=== PATIENT | female | born 1935 | race Caucasian/White ===

== ENCOUNTER 2018-03-31 00:24 | Inpatient (IN) | payer MEDICARE, BC ==
[2018-03-31] MEDS ORDERED: HEPARIN SODIUM,PORCINE 5,000 UNIT/ML 1 ML VIAL IV PRN (00:33)
--- NOTE | 2018-03-31 00:34 | ED ---
General Adult HPI - General Stated complaint: CHIP Time Seen by Provider: 03/31/18 00:32 - History of Present Illness Initial comments: Keturah is an 82-year-old female with a history of CAD and CABG as well as a recent history of persistent cough which is become productive. Patient reports she had some mildly blood tinged sputum earlier today which prompted her to seek care in an outside hospital. Evaluation at the outside hospital revealed that the patient had a right middle and right lower lobe pneumonia. CT PE study was performed and was negative. Labs revealed an elevated troponin the patient was started on heparin. She did have some shortness of breath and tachypnea [facility] for which she was transiently placed on BiPAP with resolution of her difficulty breathing. Patient was subsequently transferred to our hospital per her request. - Related Data Allergies Allergy/AdvReac Type Severity Reaction Status Date / Time azithromycin Allergy Unknown Verified 03/31/18 00:44 Penicillins Allergy Unknown Verified 03/31/18 00:44 Review of Systems ROS Statement: Those systems with pertinent positive or pertinent negative responses have been documented in the HPI. ROS Other: All systems not noted in ROS Statement are negative. Past Medical History Past Medical History: Coronary Artery Disease (CAD), Diabetes Mellitus, Hypertension, Thyroid Disorder Additional Past Surgical History / Comment(s): CABG, Aortic valve replacement General Exam - General Exam Comments Initial Comments: Physical Exam GENERAL: Chronically ill-appearing elderly female HENT: Normocephalic, Atraumatic. EYES: PERRL, EOMI PULMONARY: Crackles at bilateral bases, decreased breath sounds in the right base CARDIOVASCULAR: Systolic murmur No peripheral edema ABDOMEN: Soft and nontender with normal bowel sounds. SKIN: Skin is pale clear with no lesions or rashes and otherwise unremarkable. : Deferred NEUROLOGIC: Patient is alert and oriented x3. Moving all extremities spontaneously MUSCULOSKELETAL: Normal extremities with adequate strength and full range of motion. No lower extremity swelling or edema. No calf tenderness. PSYCHIATRIC: Normal psychiatric evaluation. Limitations: no limitations Course Vital Signs 03/31/18 03/31/18 00:27 01:33 Temperature 98.7 F Pulse Rate 89 89 Respiratory 20 18 Rate Blood Pressure 105/57 99/52 O2 Sat by Pulse 99 Oximetry EKG Findings - EKG Comments: EKG Findings:: EKG obtained at 12:52 AM, rate is 88, rhythm is sinus, there is a normal axis, there are normal intervals, MO 162, QRS 102, QTc is 469. There are ST depressions in leads 2 as well as leads V4 5 and 6. There are no acute ST elevations. There are frequent PVCs. Medical Decision Making - Medical Decision Making Patient care was discussed with transferring physician Dr. Santillan at [facility] Patient presented with productive cough, blood-tinged sputum, shortness of breath Thorough workup at that facility revealed right middle and lower lobe pneumonia , mildly elevated troponin at 0.4 and 0.6 Patient was transiently placed on BiPAP for respiratory distress, her respiratory effort improved and she was transitioned to 3 L nasal cannula. Patient was transferred to our facility for further management Computed tomography scan at that facility revealed no pulmonary embolism, again confirm the x-ray finding of right middle and lower lobe pneumonia Repeat labs were ordered Repeat labs with persistent anemia with a hemoglobin of 9.7, hemoglobin was 9.4 at outside facility Elevated PTT within therapeutic goal for heparin Troponin elevated at 7.2 Patient was reevaluated, again confirms that she is not experiencing any chest pain and has not experienced any chest pain today. Patient states that she has pain throughout her body for which she takes one Tylenol 3 every night to help her sleep. This is unchanged. Patient care was discussed with cardiology butadiene converter helper Dr. Dave, patient's presentation, EKG findings and labs were discussed. He agrees with the plan for continuing heparin and admitting with a cardiology consult. Patient was admitted to our hospital for continued monitoring. Levaquin was ordered for pneumonia, heparin for elevated troponin - Lab Data Result diagrams: 03/31/18 00:50 03/31/18 00:50 Disposition Clinical Impression: Pneumonia, Non-STEMI (non-ST elevated myocardial infarction), Chronic anemia, Respiratory failure Disposition: ADMITTED IP TO THIS HOSP Condition: Serious
[2018-03-31] MEDS ORDERED: NALOXONE 0.4 MG/ML 1 ML VIAL IV PRN (00:45)
[2018-03-31] MEDS ORDERED: HEPARIN SOD,PORK IN 0.45% NACL 25,000 UNIT in 0.45% NACL 1 500ML.BAG IV SCH (00:45)
[2018-03-31] MEDS ORDERED: PNEUMONIA PROTOCOL UTILIZED 1 EACH MISC PO PRN (00:46)
[2018-03-31 01:20] LABS: Basophils % (A) 0 %; Eosinophils % (A) 0 %; HCT 30.5 % (34.0-46.0); HGB 9.7 gm/dL (11.4-16.0); Lymphocytes # (A) 0.3 k/uL (1.0-4.8); Lymphocytes % (A) 5 %; MCH 34.1 pg (25.0-35.0); MCHC 31.7 g/dL (31.0-37.0); MCV 107.7 fL (80.0-100.0); Macrocytosis Moderate; Mean Platelet Volume 9.1; Monocytes # (A) 0.2 k/uL (0-1.0); Monocytes % (A) 3 %; Neutrophils # (A) 5.9 k/uL (1.3-7.7); Neutrophils % (A) 92 %; Platelet Count 200 k/uL (150-450); RBC 2.83 m/uL (3.80-5.40); WBC 6.4 k/uL (3.8-10.6)
[2018-03-31 01:22] LABS: INR 1.3 (<1.2); Partial Thromboplastin Time 51.5 sec (22.0-30.0); Prothrombin Time 12.6 sec (9.0-12.0)
[2018-03-31 01:24] LABS: Albumin 2.3 g/dL (3.5-5.0); Calcium 8.3 mg/dL (8.4-10.2); Magnesium 1.9 mg/dL (1.6-2.3); Total Bilirubin 0.5 mg/dL (0.2-1.3); Total Protein 7.1 g/dL (6.3-8.2)
[2018-03-31 01:42] LABS: Potassium 4.4 mmol/L (3.5-5.1)
[2018-03-31 01:48] LABS: Creatine Kinase MB 11.7 ng/mL (0.0-2.4)
[2018-03-31 01:50] LABS: Troponin I 7.32 ng/mL (0.000-0.034)
[2018-03-31 03:58] VITALS: BMI 24.2
[2018-03-31 05:44] LABS: Glucose,Whole Blood 188 mg/dL (75-99)
[2018-03-31] MEDS: IPRATROPIUM-ALBUTEROL 3 ML NEB INHALATION SCH ×4 (07:09→20:12)
[2018-03-31 07:48] LABS: Calcium 8.5 mg/dL (8.4-10.2); Potassium 4.5 mmol/L (3.5-5.1)
--- NOTE | 2018-03-31 09:07 | P.CRDCN ---
History of Present Illness Consult date: 03/31/18 Chief complaint: Shortness of breath History of present illness: This is a pleasant 82-year-old female patient who was transferred from [facility] for further cardiac evaluation. The patient overall is a poor historian. She lives by herself. She stated that she was in her usual state of health until 2 days ago when she started feeling more short of breath even with minimal exertion. No symptoms of chest pain or chest discomfort according to her. No dizziness or lightheadedness and no syncope. She was experiencing cough associated with tiny amount of blood. She did not have any fever or chills. The cause of the shortness of breath the patient decided to come to the emergency room. She did undergo a chest x-ray which revealed right middle and right lower lobe pneumonia. For some reason, the patient underwent a computed tomography scan of the chest and that came in to be negative for PE. The patient was ruled in for acute non-ST deviation myocardial infarction, the first troponin came in to be around 8, and the second troponin came in to be around 13. The BNP was 2600s. 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 She does have an extensive cardiac history and she underwent coronary artery bypass grafting with unknown details and unknown date area and she does not recall when was the bypass and how many bypasses did she have. Beside that she does have hypertension, dyslipidemia, and she is diabetic. The EKG revealed sinus rhythm with ischemic and diffuse ST segment changes quite concerning for ischemia. On physical examination, the patient does seems to be in heart failure. She does have bilateral rhonchi. She is slightly tachycardic as well. Past Medical History Past Medical History: Coronary Artery Disease (CAD), Diabetes Mellitus, Hypertension, Thyroid Disorder History of Any Multi-Drug Resistant Organisms: None Reported Additional Past Surgical History / Comment(s): CABG, Aortic valve replacement ( pt cant remember the date of the sx) Past Anesthesia/Blood Transfusion Reactions: No Reported Reaction Past Psychological History: No Psychological Hx Reported Smoking Status: Former smoker Past Alcohol Use History: None Reported Past Drug Use History: None Reported - Past Family History Mother Family Medical History: Hypertension Medications and Allergies Allergies Allergy/AdvReac Type Severity Reaction Status Date / Time azithromycin Allergy Unknown Verified 03/31/18 00:44 Penicillins Allergy Unknown Verified 03/31/18 00:44 Physical Exam Vitals: Vital Signs Temp Pulse Pulse Resp BP BP Pulse Ox 03/31/18 08:00 98.1 F 82 18 127/67 100 03/31/18 07:20 90 03/31/18 07:11 86 97 03/31/18 04:00 98 F 90 19 120/80 95 03/31/18 02:35 97.4 F L 03/31/18 02:30 97.9 F 97 17 103/61 97 03/31/18 02:00 93/53 97 03/31/18 01:33 89 18 99/52 99 03/31/18 00:27 98.7 F 89 20 105/57 Intake and Output 03/30/18 03/31/18 03/31/18 22:59 06:59 14:59 Intake Total 293.304 Balance 293.304 Intake: Intake, IV Titration 53.304 Amount Heparin Sod,Pork in 0.45% 53.304 NaCl 25,000 unit In 0.45 % NaCl 1 500ml.bag @ 12 UNITS/KG/HR 13.49 mls/hr IV .Q24H [facility] Rx#: [id number] Oral 240 Other: Voiding Method Toilet Bedpan # Voids 0 Weight 61 kg 56.2 kg - Constitutional General appearance: no acute distress - Respiratory Respiratory: bilateral: rales - Cardiovascular Rhythm: regular Heart sounds: normal: S1, S2 Abnormal Heart Sounds: systolic murmur Results 03/31/18 00:50 03/31/18 06:12 Cardiac Enzymes 03/31/18 03/31/18 03/31/18 Range/Units 00:50 00:50 06:12 AST 46 H (14-36) U/L CK-MB (CK-2) 11.7 H (0.0-2.4) ng/mL Troponin I 7.320 H* 13.400 H* (0.000-0.034) ng/mL Coagulation 03/31/18 03/31/18 Range/Units 00:50 06:12 PT 12.6 H (9.0-12.0) sec APTT 51.5 H 36.7 H (22.0-30.0) sec CBC 03/31/18 Range/Units 00:50 WBC 6.4 (3.8-10.6) k/uL RBC 2.83 L (3.80-5.40) m/uL Hgb 9.7 L (11.4-16.0) gm/dL Hct 30.5 L (34.0-46.0) % Plt Count 200 (150-450) k/uL Comprehensive Metabolic Panel 03/31/18 03/31/18 Range/Units 00:50 06:12 Sodium 133 L 135 L (137-145) mmol/L Potassium 4.4 4.5 (3.5-5.1) mmol/L Chloride 107 108 H (98-107) mmol/L Carbon Dioxide 18 L 17 L (22-30) mmol/L BUN 31 H 34 H (7-17) mg/dL Creatinine 1.09 H 1.28 H (0.52-1.04) mg/dL Glucose 165 H 175 H (74-99) mg/dL Calcium 8.3 L 8.5 (8.4-10.2) mg/dL AST 46 H (14-36) U/L ALT 18 (9-52) U/L Alkaline Phosphatase 42 (38-126) U/L Total Protein 7.1 (6.3-8.2) g/dL Albumin 2.3 L (3.5-5.0) g/dL Current Medications Generic Name Dose Route Start Last Admin Trade Name Freq PRN Reason Stop Dose Admin Albuterol/Ipratropium 3 ml 03/31/18 08:00 03/31/18 07:09 Duoneb 0.5 Mg-3 Mg/3 Ml Soln INHALATION 3 ml RT-QID MANGO Administration Aspirin 81 mg 03/31/18 09:00 Aspirin PO DAILY MANGO Atorvastatin Calcium 80 mg 03/31/18 21:00 Lipitor PO HS MANGO Furosemide 40 mg 03/31/18 09:00 Lasix IV Q12HR MANGO Heparin Sodium (Porcine) 0 unit 03/31/18 00:33 03/31/18 08:56 Heparin IV 2,750 unit PER PROTOCOL PRN Administration Low PTT Protocol Heparin Sodium/Sodium Chloride 500 mls @ 13.49 mls/hr 03/31/18 00:45 08:52 25,000 unit/ Sodium Chloride IV 9.66 units/kg/hr .Q24H MANGO 10.86 mls/hr Titration Protocol 12 UNITS/KG/HR Levofloxacin 750 mg/ IV 150 mls @ 100 mls/hr 04/01/18 19:00 Solution IVPB 04/11/18 19:01 Q48H MANGO Metoprolol Tartrate 25 mg 03/31/18 09:00 Lopressor PO BID MANGO Miscellaneous Information 1 each 03/31/18 00:46 Pneumonia Protocol Utilized PO ONCE PRN Per Protocol Naloxone HCl 0.2 mg 03/31/18 00:45 Narcan IV Q2M PRN Opioid Reversal Intake and Output 03/30/18 03/31/18 03/31/18 22:59 06:59 14:59 Intake Total 293.304 Balance 293.304 Intake: Intake, IV Titration 53.304 Amount Heparin Sod,Pork in 0.45% 53.304 NaCl 25,000 unit In 0.45 % NaCl 1 500ml.bag @ 12 UNITS/KG/HR 13.49 mls/hr IV .Q24H [facility] Rx#: [id number] Oral 240 Other: Voiding Method Toilet Bedpan # Voids 0 Weight 61 kg 56.2 kg Patient Weight 04/01/18 06:59 Weight 56.2 kg 03/31/18 00:50 03/31/18 06:12 Assessment and Plan Assessment: Assessment #1 acute non-ST deviation myocardial infarction #2 congestive heart failure exacerbation and known if it's due to systolic or diastole dysfunction #3 known CAD and status post CABG with unknown details #4 diabetes type 2 #5 hypertension #6 dyslipidemia Plan #1 the patient seems to be in heart failure at this point. #2 start the patient on diuretics with Lasix IV at 40 mg twice a day #3 monitor her kidney function and electrolytes #4 add aspirin, metoprolol, and Lipitor to the current medical regimen #5 obtain an echocardiogram with Doppler #6 consider conservative approach for the next 24 hours #7 the patient does need to have coronary angiogram in the next 24-48 hours once she is out of the acute phase of heart failure #8 follow-up with the patient. Thank you for allowing us participate in her care and we will continue following up with her
[2018-03-31] MEDS: ASPIRIN 81 MG PO SCH (10:03)
[2018-03-31] MEDS: METOPROLOL TARTRATE 25 MG TAB PO SCH ×2 (10:03→20:33)
[2018-03-31] MEDS: FUROSEMIDE 10 MG/ML 4 ML VIAL IV SCH ×2 (10:03→20:33)
[2018-03-31 11:31] LABS: Glucose,Whole Blood 170 mg/dL (75-99)
[2018-03-31] MEDS ORDERED: APIXABAN 2.5 MG TABLET PO SCH ×2 (12:15→13:03)
--- NOTE | 2018-03-31 13:59 | ECHOF ---
Referral Reason:nstemi MEASUREMENTS -------- HEIGHT: 152.4 cm WEIGHT: 55.8 kg BP: IVSd: 1.5 cm (0.6 - 1.1) LVIDd: 4.3 cm (3.9 - 5.3) LVPWd: 1.5 cm (0.6 - 1.1) IVSs: 1.9 cm LVIDs: 3.5 cm LVPWs: 1.5 cm LA Diam: 3.6 cm (2.7 - 3.8) LAESV Index (A-L): 62.00 ml/m Ao Diam: 2.7 cm (2.0 - 3.7) LA Diam: 4.8 cm (2.7 - 3.8) EPSS: 0.8 cm MV E Chadwick: 0.88 m/s MV DecT: 210 ms MV A Chadwick: 0.30 m/s MV E/A Ratio: 2.90 AV maxP.52 mmHg AV meanP.85 mmHg AR PHT: 308 ms RAP: 5.00 mmHg RVSP: 42.91 mmHg MV EF SLOPE: 69.59 mm/s (70 - 150) MV EXCURSION: 12.49 mm (> 18.000) FINDINGS -------- Sinus rhythm. This was a technically adequate study. The left ventricular size is normal. There is mild concentric left ventricular hypertrophy. Overa ll left ventricular systolic function is mild-moderately impaired with, an EF between 40 - 45 %. An terseptal Hypokinesis The right ventricle is normal in size. The left atrium is markedly dilated. LA is severely dilated >40 ml/m2 The right atrial size is normal. The aortic valve was not well visualized. There is moderate aortic valve sclerosis. Peak/mean gra dient across the Aortic Valve is 68.52mmHg / 43.85mmHg. 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 Mild mitral annular calcification present. Moderate mitral regurgitation is present. Mild tricuspid regurgitation present. There is mild pulmonary hypertension. The right ventricular systolic pressure, as measured by Doppler, is 42.91mmHg. There is no pulmonic regurgitation present. The aortic root size is normal. There is no pericardial effusion. CONCLUSIONS -------- 1. The left ventricular size is normal. 2. There is mild concentric left ventricular hypertrophy. 3. Overall left ventricular systolic function is mild-moderately impaired with, an EF between 40 - 45 %. 4. Anterseptal Hypokinesis 5. The right ventricle is normal in size. 6. The left atrium is markedly dilated. 7. LA is severely dilated >40 ml/m2 8. The right atrial size is normal. 9. The aortic valve was not well visualized. 10. There is moderate aortic valve sclerosis. 11. Peak/mean gradient across the Aortic Valve is 68.52mmHg / 43.85mmHg. 12. 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 13. Mild mitral annular calcification present. 14. Moderate mitral regurgitation is present. 15. Mild tricuspid regurgitation present. 16. There is mild pulmonary hypertension. 17. The right ventricular systolic pressure, as measured by Doppler, is 42.91mmHg. 18. There is no pulmonic regurgitation present. 19. The aortic root size is normal. 20. There is no pericardial effusion. HEATER MECHANIC: Kinjal Garibay RDCS
[2018-03-31] MEDS: LOSARTAN 50 MG TAB PO SCH (14:36)
[2018-03-31] MEDS: LEVOTHYROXINE 50 MCG TAB PO SCH (14:36)
[2018-03-31] MEDS: POTASSIUM CHLORIDE ER 20 MEQ TAB.ER PO SCH (14:36)
[2018-03-31] MEDS: amLODIPine 5 MG TAB PO SCH (14:36)
--- NOTE | 2018-03-31 14:55 | XR ---
EXAMINATION TYPE: XR chest 2V DATE OF EXAM: 03/31/2018 COMPARISON: NONE HISTORY: Pneumonia and altered mental status. TECHNIQUE: Frontal and lateral views of the chest are obtained. FINDINGS: There is complete atelectasis of the right middle lobe and right midlung focal opacity. Sc attered areas of subsegmental atelectasis are seen peripherally on the left. Pulmonary hyperinflation relates underlying COPD. Cardiomediastinal silhouette is enlarged with post cardiac valvular replace ment surgical change of the chest. There is diffuse osseous demineralization and mild multilevel dege nerative changes of the thoracic spine. IMPRESSION: Right middle lobar atelectasis and right midlung opacity. Although underlying pneumonia is a possibility obstructing mass is also possible and could be further assessed with CT.
[2018-03-31] MEDS: HEPARIN SOD,PORK IN 0.45% NACL 25,000 UNIT in 0.45% NACL 1 500ML.BAG IV SCH (15:50)
[2018-03-31 17:13] LABS: Glucose,Whole Blood 147 mg/dL (75-99)
[2018-03-31] MEDS: ATORVASTATIN 80 MG TAB PO SCH (20:33)
[2018-03-31] MEDS ORDERED: LEVOFLOXACIN 750MG-D5W PMX 750 MG in DEXTROSE/WATER 1 150ML.BAG IVPB SCH (20:45)
[2018-03-31 21:00] LABS: Glucose,Whole Blood 141 mg/dL (75-99)
[2018-03-31] MEDS: ALBUTEROL NEBULIZED 2.5 MG/3 ML INHALATION PRN (21:12)
[2018-03-31] MEDS: HEPARIN SODIUM,PORCINE 5,000 UNIT/ML 1 ML VIAL IV PRN (21:33)
[2018-03-31] MEDS: SODIUM BICARBONATE TAB 650 MG TAB PO SCH (21:33)
--- NOTE | 2018-03-31 22:10 | HP ---
HISTORY AND PHYSICAL DATE OF ADMISSION: 03/31/2018 DATE OF SERVICE: 03/31/2018 PRESENTING COMPLAINT: Short of breath, tired. HISTORY OF PRESENTING COMPLAINT: This is a pleasant 82-year-old patient who follows with Dr. Banks. Chronic stable medical conditions include coronary artery disease with a history of bypass, diabetes, hypertension, hypothyroid. Patient is not the best of historians; somewhat vague while giving the history. The patient states she is here because she has been short of breath for a few days, has a slight cough, congested, not able to bring up much sputum. No edema. There is no obvious fever. Appetite is okay. She has been having bowel movements. Denies any obvious chest pain. In the meantime, patient also had ruled in for an acute CA, initial troponin being 7.3. The patient was put on IV heparin. Patient denies any obvious chest discomfort, though weak and tired. No perspiration. REVIEW OF SYSTEMS: CONSTITUTIONAL: Weak and tired. HEENT: None. RESPIRATORY: As above. CARDIOVASCULAR: As above. GASTROINTESTINAL: None. GENITOURINARY: None. MUSCULOSKELETAL: Some pain in the joints. DERMATOLOGICAL: None. HEMATOLOGICAL: None. LYMPHATICS: None. PSYCHIATRY: A bit forgetful. NEUROLOGICAL: None. PAST MEDICAL HISTORY: 1. Coronary artery disease. 2. Diabetes. 3. Hypertension. 4. Hypothyroid. PAST SURGICAL HISTORY: 1. Aortic valve replacement. 2. Coronary artery bypass. SOCIAL HISTORY: Lives by herself. Uses a walker. Did smoke in the past. No alcohol. FAMILY HISTORY: Hypertension. HOME MEDICATIONS: 1. Eliquis 2.5 mg p.o. b.i.d. 2. Norvasc 5 mg p.o. daily. 3. Pravachol 20 mg p.o. daily. 4. Potassium 20 mEq p.o. daily. 5. Synthroid 50 mcg p.o. daily. 6. Lasix 20 mg p.o. daily. 7. Losartan 100 mg p.o. daily. 8. Ventolin HFA 2 puffs q.4 p.r.n. ALLERGIES: ERYTHROMYCIN and PENICILLIN. PHYSICAL EXAMINATION: Temperature 98.2, pulse 87, respiration 18, blood pressure 126/82, pulse ox 99% on 2 L. GENERAL APPEARANCE: Average build. Lying in bed. Tired-appearing. EYES: Pupils equal. Conjunctivae normal. HEENT: External appearance of nose and ears normal. Oral cavity normal. NECK: JVD not raised. Mass not palpable. RESPIRATORY: Effort increased. Decreased breath sounds. Some bronchial breathing on the right side. CARDIOVASCULAR: First and second sounds normal. No edema. ABDOMEN: Soft, non-tender. Liver and spleen not palpable. LYMPHATIC: No lymph node palpable in neck or axillae. PSYCHIATRY: Patient is able to answer some simple questions. NEUROLOGICAL: Pupils equal. Cranial nerves grossly intact. Power and sensation grossly intact. INVESTIGATIONS: White count 6.4, hemoglobin 9.7, platelets 200. Potassium 4.4, BUN 31, creatinine 1.09. Bicarb is 18. BUN and creatinine are 34 and 1.28. ProBNP 26,700. Troponin I 7.3, 13.4, 15.6. Two-D echocardiogram shows EF of 40% to 45% with anteroseptal hypokinesis, moderate mitral regurgitation present. EKG shows poor R-wave progression in the anterior leads, ST-segment depression in leads II, III and the lateral leads. The EKG was personally reviewed by me. Chest x-ray film, personally reviewed by me, shows right middle lobe infiltrate, possible small effusion and some venous prominence. Sternal wires are present. ASSESSMENT: 1. Acute non-Q-wave myocardial infarction. 2. Possible acute congestive heart failure from systolic dysfunction, ejection fraction 40% to 45%, from underlying coronary artery disease. 3. Right lower lobe pneumonia; cannot rule out underlying mass. 4. 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 5. Chronic gait dysfunction. Uses a walker. 6. Macrocytic anemia, cause unknown. 7. Possible chronic kidney disease, stage III, from nephrosclerosis. 8. Metabolic acidosis, likely from renal failure. PLAN: Patient is started on IV Lasix, IV heparin. Home medications are resumed. Patient is also on aspirin. Eliquis was held. The patient was earlier seen by Dr. Estrella, who did offer a cardiac catheterization. The patient is very apprehensive about the same. Will also start the patient on Levaquin. Pulmonary was consulted. Will check patient's renal ultrasound and a UA to check for chronicity of renal function. MMODL / IJN: [id number] /
[2018-04-01] MEDS ORDERED: FUROSEMIDE 10 MG/ML 2 ML VIAL IV STA (00:42)
[2018-04-01] MEDS: ALBUTEROL NEBULIZED 2.5 MG/3 ML INHALATION PRN ×2 (00:56→06:04)
[2018-04-01 01:37] LABS: Glucose,Whole Blood 151 mg/dL (75-99)
[2018-04-01 02:39] LABS: Appearance,Urine Clear (Clear); Bilirubin,Urine Negative (Negative); Blood,Urine Small (Negative); Color,Urine Light Yellow; Glucose,Urine (UA) Negative (Negative); Hyaline Casts,Urine 4 /lpf (0-2); Ketones,Urine Negative (Negative); Leukocyte Esterase,Urine Negative (Negative); Mucus,Urine Rare /hpf; Nitrite,Urine Negative (Negative); PH, Urine 5.5 (5.0-8.0); Protein,Urine 2+ (Negative); RBC,Urine 1 /hpf (0-5); Specific Gravity,Urine 1.017 (1.001-1.035); Urobilinogen,Urine <2.0 mg/dL (<2.0); WBC,Urine 2 /hpf (0-5)
[2018-04-01 04:29] LABS: Basophils % (A) 0 %; Eosinophils # (A) 0.1 k/uL (0-0.7); Eosinophils % (A) 1 %; HCT 34.9 % (34.0-46.0); HGB 10.8 gm/dL (11.4-16.0); Hypochromasia Moderate; Lymphocytes # (A) 1.2 k/uL (1.0-4.8); Lymphocytes % (A) 10 %; MCH 34.7 pg (25.0-35.0); Mean Platelet Volume 9.5; Monocytes # (A) 0.7 k/uL (0-1.0); Monocytes % (A) 6 %; Neutrophils # (A) 9.5 k/uL (1.3-7.7); Neutrophils % (A) 83 %; Platelet Count 339 k/uL (150-450); RBC 3.11 m/uL (3.80-5.40); RDW 13.1 % (11.5-15.5); WBC 11.5 k/uL (3.8-10.6)
[2018-04-01] MEDS: HEPARIN SODIUM,PORCINE 5,000 UNIT/ML 1 ML VIAL IV PRN (04:41)
[2018-04-01] MEDS: LEVOTHYROXINE 50 MCG TAB PO SCH (05:52)
[2018-04-01 06:09] LABS: Calcium 8.7 mg/dL (8.4-10.2)
[2018-04-01 06:18] LABS: Macrocytosis Marked
[2018-04-01 06:52] LABS: Glucose,Whole Blood 180 mg/dL (75-99)
--- NOTE | 2018-04-01 08:10 | XR ---
EXAMINATION TYPE: XR chest 2V DATE OF EXAM: 04/01/2018 COMPARISON: Prior chest x-ray 03/31/2018 HISTORY: Heart failure TECHNIQUE: Frontal and lateral views of the chest are obtained. FINDINGS: Patient is post median sternotomy, aortic valve replacement. Heart size is stable. There i s prominence of the central vascularity, perihilar airspace disease. No evident pneumothorax. Persist ent right middle lobe volume loss, abnormal increased density is present. Patient is rotated and ther e are overlying cardiac leads, epicardial pacing leads are noted. IMPRESSION: Findings compatible with congestive heart failure. Persistent right middle lobe atelecta sis, follow-up to resolution is recommended to assess for interval clearing, exclude central mass.
--- NOTE | 2018-04-01 08:29 | US ---
EXAMINATION TYPE: US kidneys/renal and bladder DATE OF EXAM: 04/01/2018 COMPARISON: NONE CLINICAL HISTORY: renal failure. EXAM MEASUREMENTS: Right Kidney: 10.0 x 4.1 x 5.2 cm Left Kidney: 10.9 x 5.5 x 4.6 cm Right Kidney: No hydronephrosis. Loss of corticomedullary differentiation. Left Kidney: Prominent renal pelvis. Loss of corticomedullary differentiation. Multiple probable para pelvic cysts visualized, largest measuring 1.3 x 1.0 x 1.0 cm Bladder: wnl as visualized Bilateral Jets seen: Left jet visualized Incidental finding: Gallstones visualized Cortical echogenicity is increased bilaterally IMPRESSION: Findings suggest medical renal disease. Mild left hydronephrosis. Cholelithiasis.
[2018-04-01] MEDS: IPRATROPIUM-ALBUTEROL 3 ML NEB INHALATION SCH ×2 (08:42→12:16)
[2018-04-01] MEDS: ASPIRIN 81 MG PO SCH (09:00)
[2018-04-01] MEDS: amLODIPine 5 MG TAB PO SCH (09:00)
[2018-04-01] MEDS: FUROSEMIDE 10 MG/ML 4 ML VIAL IV SCH (09:00)
[2018-04-01] MEDS: LOSARTAN 50 MG TAB PO SCH (09:00)
[2018-04-01] MEDS: METOPROLOL TARTRATE 25 MG TAB PO SCH ×2 (09:01→21:49)
[2018-04-01] MEDS: SODIUM BICARBONATE TAB 650 MG TAB PO SCH ×3 (09:01→21:50)
[2018-04-01] MEDS: POTASSIUM CHLORIDE ER 20 MEQ TAB.ER PO SCH (09:58)
[2018-04-01] MEDS: ONDANSETRON 4 MG/2 ML VIAL IVP PRN ×4 (09:59→23:26)
[2018-04-01 11:32] LABS: Glucose,Whole Blood 147 mg/dL (75-99)
[2018-04-01] MEDS ORDERED: IPRATROPIUM-ALBUTEROL 3 ML NEB INHALATION PRN (12:14)
--- NOTE | 2018-04-01 12:21 | P.NPCON ---
History of Present Illness - Reason for Consult acute renal failure - History of Present Illness Reason for consultation: Acute kidney injury History of present illness: Patient is a 82-year-old female seen in renal consultation for acute kidney injury. Unknown baseline creatinine. Creatinine was 1.09 on admission and is up to 2.14 today. Patient presented to the hospital with cough. She also admits to a pinkish tinge to her sputum. Patient had workup done prior to admission and was noted to have a right middle lobe and a right lower lobe pneumonia. She also had a CTA done yesterday which revealed no evidence of pulmonary embolus. Patient also has history of systolic CHF with ejection fraction of 40-45% with moderate mitral regurgitation. Ultrasound reveals no evidence of hydronephrosis. She is maintained on IV antibiotics as well as IV Lasix 40 mg IV twice daily. Admits to good urine output. No hematuria or dysuria. Denies use of NSAIDs. Oral intake is fair. No vomiting or diarrhea. No edema. Denies family history of renal disease. Vital signs are stable. General: The patient appeared well nourished and normally developed. HEENT: Head exam is unremarkable. Neck is without jugular venous distension. LUNGS: Lungs are clear to auscultation and percussion. Breath sounds decreased. HEART: Rate and Rhythm are regular. First and second heart sounds normal. No murmurs, rubs or gallops. ABDOMEN: Abdominal exam reveals normal bowel sounds. Non-tender and non- distended. No evidence of peritonitis. EXTREMITITES: No clubbing, cyanosis, or edema. Past Medical History Past Medical History: Coronary Artery Disease (CAD), Diabetes Mellitus, Hypertension, Thyroid Disorder History of Any Multi-Drug Resistant Organisms: None Reported Additional Past Surgical History / Comment(s): CABG, Aortic valve replacement ( pt cant remember the date of the sx) Past Anesthesia/Blood Transfusion Reactions: No Reported Reaction Past Psychological History: No Psychological Hx Reported Smoking Status: Former smoker Past Alcohol Use History: None Reported Past Drug Use History: None Reported - Past Family History Mother Family Medical History: Hypertension Medications and Allergies Home Medications Medication Instructions Recorded Confirmed Type Albuterol Inhaler [Ventolin Hfa 2 puff INHALATION RT-Q4H PRN 03/31/18 03/31/18 History Inhaler] Apixaban [Eliquis] 2.5 mg PO BID 03/31/18 03/31/18 History Furosemide [Lasix] 20 mg PO DAILY 03/31/18 03/31/18 History Levothyroxine Sodium [Synthroid] 50 mcg PO DAILY 03/31/18 03/31/18 History Losartan Potassium 100 mg PO DAILY 03/31/18 03/31/18 History Potassium Chloride [Klor-Con 20] 20 meq PO DAILY 03/31/18 03/31/18 History Pravastatin Sodium [Pravachol] 20 mg PO DAILY 03/31/18 03/31/18 History amLODIPine [Norvasc] 5 mg PO DAILY 03/31/18 03/31/18 History Allergies Allergy/AdvReac Type Severity Reaction Status Date / Time azithromycin Allergy Unknown Verified 03/31/18 00:44 Penicillins Allergy Unknown Verified 03/31/18 00:44 Physical Exam Vitals: Vital Signs Temp Pulse Pulse Resp BP Pulse Ox 04/01/18 11:32 16 04/01/18 10:48 74 16 127/76 96 04/01/18 08:00 97.1 F L 70 18 133/73 04/01/18 06:15 88 04/01/18 06:04 88 04/01/18 04:00 98 F 77 21 147/74 92 L 04/01/18 01:07 86 18 04/01/18 00:56 84 16 03/31/18 23:49 97 20 03/31/18 23:47 98 F 97 20 127/73 94 L 03/31/18 21:26 90 03/31/18 21:12 88 03/31/18 20:00 98.1 F 82 17 123/65 96 03/31/18 16:24 90 03/31/18 16:12 88 98 03/31/18 16:00 87 18 03/31/18 15:33 98.2 F 87 18 126/82 99 Intake and Output 03/31/18 04/01/18 04/01/18 22:59 06:59 14:59 Intake Total 74.054 458.997 Output Total 100 Balance 74.054 358.997 Intake: Intake, IV Titration 74.054 108.997 Amount Heparin Sod,Pork in 0.45% 74.054 108.997 NaCl 25,000 unit In 0.45 % NaCl 1 500ml.bag @ 12 UNITS/KG/HR 13.48 mls/hr IV .Q24H [facility] Rx#: [id number] Oral 0 350 Output: Urine 100 Other: Voiding Method Toilet Toilet Toilet # Voids 2 1 Weight 56.2 kg Results - Lab Results Most recent lab results Calcium 8.7 mg/dL (8.4-10.2) 04/01/18 05:35 Magnesium 1.9 mg/dL (1.6-2.3) 03/31/18 00:50 04/01/18 03:09 04/01/18 05:35 Assessment and Plan Plan: Assessment: 1. Acute kidney injury mostly prerenal secondary to diuresis. Creatinine up to 2.14 today. Unknown baseline creatinine. Patient also received IV contrast dye on March 31 for a CTA. 2. Pneumonia maintained on antibiotics. 3. Systolic CHF with ejection fraction of 40-45% with moderate mitral regurgitation. 4. Volume overload. 5. Benign hypertension. Controlled. 6. Metabolic acidosis secondary to acute kidney injury. Plan: I will decrease Lasix to 40 mg once daily. Hold losartan. Discontinue potassium supplementation. Avoid nephrotoxins. Maintain oral sodium bicarbonate. Repeat electrolytes in the morning. Thank you for the consultation. I will continue to follow the patient with you during her hospital stay.
--- NOTE | 2018-04-01 13:57 | P.CNPUL ---
History of Present Illness Consult date: 04/01/18 Reason for consult: dyspnea, cough, hypoxemia, pneumonia, pleural effusion Chief complaint: Shortness of breath History of present illness: 82-year-old female who was seen eval examined on third floor, patient is a transfer from [facility] for abnormal labs including elevated troponin patient is overall a poor historian most of the data has been obtained from the chart, She stated that she was in her usual state of health until 2 days ago when she started feeling more short of breath even with minimal exertion. No symptoms of chest pain or chest discomfort according to her. No dizziness or lightheadedness and no syncope. She was experiencing cough associated with tiny amount of blood. She did not have any fever or chills. The cause of the shortness of breath the patient decided to come to the emergency room. She did undergo a chest x-ray which revealed right middle and right lower lobe pneumonia. For some reason, the patient underwent a computed tomography scan of the chest and that came in to be negative for PE. The patient was ruled in for acute non-ST deviation myocardial infarction, the first troponin came in to be around 8, and the second troponin came in to be around 13. The BNP was 2600s. 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 She does have an extensive cardiac history and she underwent coronary artery bypass grafting with unknown details and unknown date area and she does not recall when was the bypass and how many bypasses did she have. Beside that she does have hypertension, dyslipidemia, and she is diabetic. The EKG revealed sinus rhythm with ischemic and diffuse ST segment changes quite concerning for ischemia. Review of Systems All systems: negative Past Medical History Past Medical History: Coronary Artery Disease (CAD), Diabetes Mellitus, Hypertension, Thyroid Disorder History of Any Multi-Drug Resistant Organisms: None Reported Additional Past Surgical History / Comment(s): CABG, Aortic valve replacement ( pt cant remember the date of the sx) Past Anesthesia/Blood Transfusion Reactions: No Reported Reaction Past Psychological History: No Psychological Hx Reported Smoking Status: Former smoker Past Alcohol Use History: None Reported Past Drug Use History: None Reported - Past Family History Mother Family Medical History: Hypertension Medications and Allergies Home Medications Medication Instructions Recorded Confirmed Type Albuterol Inhaler [Ventolin Hfa 2 puff INHALATION RT-Q4H PRN 03/31/18 03/31/18 History Inhaler] Apixaban [Eliquis] 2.5 mg PO BID 03/31/18 03/31/18 History Furosemide [Lasix] 20 mg PO DAILY 03/31/18 03/31/18 History Levothyroxine Sodium [Synthroid] 50 mcg PO DAILY 03/31/18 03/31/18 History Losartan Potassium 100 mg PO DAILY 03/31/18 03/31/18 History Potassium Chloride [Klor-Con 20] 20 meq PO DAILY 03/31/18 03/31/18 History Pravastatin Sodium [Pravachol] 20 mg PO DAILY 03/31/18 03/31/18 History amLODIPine [Norvasc] 5 mg PO DAILY 03/31/18 03/31/18 History Allergies Allergy/AdvReac Type Severity Reaction Status Date / Time azithromycin Allergy Unknown Verified 03/31/18 00:44 Penicillins Allergy Unknown Verified 03/31/18 00:44 Physical Exam Vitals: Vital Signs Temp Pulse Pulse Resp BP Pulse Ox 04/01/18 11:32 16 04/01/18 10:48 74 16 127/76 96 04/01/18 08:00 97.1 F L 70 18 133/73 04/01/18 06:15 88 04/01/18 06:04 88 04/01/18 04:00 98 F 77 21 147/74 92 L 04/01/18 01:07 86 18 04/01/18 00:56 84 16 03/31/18 23:49 97 20 03/31/18 23:47 98 F 97 20 127/73 94 L 03/31/18 21:26 90 03/31/18 21:12 88 03/31/18 20:00 98.1 F 82 17 123/65 96 03/31/18 16:24 90 03/31/18 16:12 88 98 03/31/18 16:00 87 18 03/31/18 15:33 98.2 F 87 18 126/82 99 Intake and Output 03/31/18 04/01/18 04/01/18 22:59 06:59 14:59 Intake Total 74.054 458.997 170.214 Output Total 100 Balance 74.054 358.997 170.214 Intake: Intake, IV Titration 74.054 108.997 158.214 Amount Heparin Sod,Pork in 0.45% 74.054 108.997 158.214 NaCl 25,000 unit In 0.45 % NaCl 1 500ml.bag @ 12 UNITS/KG/HR 13.48 mls/hr IV .Q[facility]H [facility] Rx#: [id number] Oral 0 350 12 Output: Urine 100 Other: Voiding Method Toilet Toilet Toilet # Voids 2 1 2 Weight 56.2 kg - Constitutional General appearance: cooperative, disheveled, mild distress - EENT Eyes: EOMI, PERRLA, normal appearance ENT: hard of hearing, normal oropharynx Ears: bilateral: normal - Neck Carotids: bilateral: upstroke normal Thyroid: negative: normal size - Respiratory Respiratory: bilateral: rales, rhonchi, wheezing - Cardiovascular Rhythm: regular Heart sounds: normal: S1, S2 - Neurologic Neurologic: CNII-XII intact - Musculoskeletal Musculoskeletal: gait normal, generalized weakness, strength equal bilaterally - Psychiatric Psychiatric: A&O x's 3, appropriate affect, intact judgment & insight Results - Laboratory Findings CBC and BMP: 04/01/18 03:09 04/01/18 05:35 PT/INR, D-dimer PT 12.6 sec (9.0-12.0) H 03/31/18 00:50 INR 1.3 (<1.2) H 03/31/18 00:50 Abnormal lab findings: Abnormal Labs 03/31/18 03/31/18 03/31/18 00:50 00:50 00:50 WBC RBC 2.83 L Hgb 9.7 L Hct 30.5 L MCV 107.7 H Neutrophils # Lymphocytes # 0.3 L PT INR APTT Sodium 133 L Chloride Carbon Dioxide 18 L BUN 31 H Creatinine 1.09 H Glucose 165 H POC Glucose (mg/dL) Calcium 8.3 L AST 46 H Total Creatine Kinase 217 H CK-MB (CK-2) 11.7 H Troponin I 7.320 H* Albumin 2.3 L Urine Protein Urine Blood Hyaline Casts Urine Mucus 03/31/18 03/31/18 03/31/18 00:50 05:43 06:12 WBC RBC Hgb Hct MCV Neutrophils # Lymphocytes # PT 12.6 H INR 1.3 H APTT 51.5 H 36.7 H Sodium Chloride Carbon Dioxide BUN Creatinine Glucose POC Glucose (mg/dL) 188 H Calcium AST Total Creatine Kinase CK-MB (CK-2) Troponin I Albumin Urine Protein Urine Blood Hyaline Casts Urine Mucus 03/31/18 03/31/18 03/31/18 06:12 06:12 11:29 WBC RBC Hgb Hct MCV Neutrophils # Lymphocytes # PT INR APTT Sodium 135 L Chloride 108 H Carbon Dioxide 17 L BUN 34 H Creatinine 1.28 H Glucose 175 H POC Glucose (mg/dL) 170 H Calcium AST Total Creatine Kinase CK-MB (CK-2) Troponin I 13.400 H* Albumin Urine Protein Urine Blood Hyaline Casts Urine Mucus 03/31/18 03/31/18 03/31/18 12:36 12:36 16:54 WBC RBC Hgb Hct MCV Neutrophils # Lymphocytes # PT INR APTT 48.3 H Sodium Chloride Carbon Dioxide BUN Creatinine Glucose POC Glucose (mg/dL) 147 H Calcium AST Total Creatine Kinase CK-MB (CK-2) Troponin I 15.600 H* Albumin Urine Protein Urine Blood Hyaline Casts Urine Mucus 03/31/18 03/31/18 04/01/18 20:02 20:56 01:16 WBC RBC Hgb Hct MCV Neutrophils # Lymphocytes # PT INR APTT 40.4 H Sodium Chloride Carbon Dioxide BUN Creatinine Glucose POC Glucose (mg/dL) 141 H 151 H Calcium AST Total Creatine Kinase CK-MB (CK-2) Troponin I Albumin Urine Protein Urine Blood Hyaline Casts Urine Mucus 04/01/18 04/01/18 04/01/18 02:20 03:09 03:09 WBC 11.5 H RBC 3.11 L Hgb 10.8 L Hct MCV 112.0 H Neutrophils # 9.5 H Lymphocytes # PT INR APTT 37.0 H Sodium Chloride Carbon Dioxide BUN Creatinine Glucose POC Glucose (mg/dL) Calcium AST Total Creatine Kinase CK-MB (CK-2) Troponin I Albumin Urine Protein 2+ H Urine Blood Small H Hyaline Casts 4 H Urine Mucus Rare H 04/01/18 04/01/18 04/01/18 05:35 05:35 05:58 WBC RBC Hgb Hct MCV Neutrophils # Lymphocytes # PT INR APTT Sodium 136 L Chloride Carbon Dioxide 18 L BUN 54 H Creatinine 2.14 H Glucose 184 H POC Glucose (mg/dL) 180 H Calcium AST Total Creatine Kinase CK-MB (CK-2) Troponin I 11.100 H* Albumin Urine Protein Urine Blood Hyaline Casts Urine Mucus 04/01/18 04/01/18 11:28 12:04 WBC RBC Hgb Hct MCV Neutrophils # Lymphocytes # PT INR APTT 85.6 H Sodium Chloride Carbon Dioxide BUN Creatinine Glucose POC Glucose (mg/dL) 147 H Calcium AST Total Creatine Kinase CK-MB (CK-2) Troponin I Albumin Urine Protein Urine Blood Hyaline Casts Urine Mucus - Diagnostic Findings Chest x-ray: report reviewed, image reviewed (Right lower lobe as well as right middle lobe pneumonia along with left perihilar interstitial vascular prominence suggestive of pulmonary edema right-sided pleural effusion cannot be excluded) Assessment and Plan Assessment: Acute pulmonary edema related to acute non-ST segment elevated HI Acute non-ST segment elevated HI Right lower lobe and right middle lobe pneumonia Right-sided pleural effusion Coronary artery disease Plan: Agree with broad-spectrum antibiotic Hold on obtaining a computed tomography scan as per discussion with the primary service as well as stabilized the patient first Can obtain ultrasound of the chest to look at extent of right-sided pleural effusion Continue supportive care Further recommendations pending plan of care as per clinical response of the patient Time with Patient: Greater than 30
[2018-04-01] MEDS: HEPARIN SOD,PORK IN 0.45% NACL 25,000 UNIT in 0.45% NACL 1 500ML.BAG IV SCH (14:38)
[2018-04-01 14:46] VITALS: TEMP 97.8
[2018-04-01 16:15] LABS: Glucose,Whole Blood 157 mg/dL (75-99)
--- NOTE | 2018-04-01 16:20 | P.PN ---
Subjective Progress Note Date: 04/01/18 Principal diagnosis: Acute coronary syndrome This is a pleasant 82-year-old female patient who was transferred from [facility] for further cardiac evaluation. The patient overall is a poor historian. She lives by herself. She stated that she was in her usual state of health until 2 days ago when she started feeling more short of breath even with minimal exertion. No symptoms of chest pain or chest discomfort according to her. No dizziness or lightheadedness and no syncope. She was experiencing cough associated with tiny amount of blood. She did not have any fever or chills. The cause of the shortness of breath the patient decided to come to the emergency room. She did undergo a chest x-ray which revealed right middle and right lower lobe pneumonia. For some reason, the patient underwent a computed tomography scan of the chest and that came in to be negative for PE. The patient was ruled in for acute non-ST deviation myocardial infarction, the first troponin came in to be around 8, and the second troponin came in to be around 13. The BNP was 2600s. 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 On follow-up with the patient today, she stated that she is feeling slightly better in terms of shortness of breath. She does have significant amount of crackles in both lung chaudhary. The echocardiogram showed impaired LV function with evidence off bioprosthetic aortic valve was evidence of [id number] aortic stenosis. After long discussion with the family regarding her situation they would like to pursue with a coronary angiogram. I would consider coronary angiogram on her tomorrow just because of worsening kidney function. Objective - Vital Signs Vital signs: Vital Signs Temp 97.8 F 04/01/18 14:44 Pulse 71 04/01/18 15:22 Resp 16 04/01/18 15:22 BP 109/68 04/01/18 14:44 Pulse Ox 91 L 04/01/18 14:44 Intake & Output 03/31/18 04/01/18 04/01/18 18:59 06:59 18:59 Intake Total 533.304 533.051 194.829 Output Total 100 Balance 533.304 433.051 194.829 Weight 56.2 kg 56.2 kg Intake: Intake, IV Titration 53.304 183.051 182.829 Amount Heparin Sod,Pork in 0.45% 183.051 182.829 NaCl 25,000 unit In 0.45 % NaCl 1 500ml.bag @ 12 UNITS/KG/HR 13.48 mls/hr IV .Q24H [facility] Rx#: [id number] Heparin Sod,Pork in 0.45% 53.304 NaCl 25,000 unit In 0.45 % NaCl 1 500ml.bag @ 12 UNITS/KG/HR 13.49 mls/hr IV .Q24H [facility] Rx#: [id number] Oral 480 350 12 Output: Urine 100 Other: Voiding Method Toilet Toilet Toilet # Voids 2 1 2 - Constitutional General appearance: Present: mild distress - Respiratory Respiratory: bilateral: rales - Cardiovascular Rhythm: regular Heart sounds: normal: S1, S2 Abnormal Heart Sounds: Present: systolic murmur - Labs CBC & Chem 7: 04/01/18 03:09 04/01/18 05:35 Labs: Abnormal Lab Results - Last 24 Hours (Table) 03/31/18 03/31/18 03/31/18 Range/Units 16:54 20:02 20:56 WBC (3.8-10.6) k/uL RBC (3.80-5.40) m/uL Hgb (11.4-16.0) gm/dL MCV (80.0-100.0) fL Neutrophils # (1.3-7.7) k/uL APTT 40.4 H (22.0-30.0) sec Sodium (137-145) mmol/L Carbon Dioxide (22-30) mmol/L BUN (7-17) mg/dL Creatinine (0.52-1.04) mg/dL Glucose (74-99) mg/dL POC Glucose (mg/dL) 147 H 141 H (75-99) mg/dL Troponin I (0.000-0.034) ng/mL Urine Protein (Negative) Urine Blood (Negative) Hyaline Casts (0-2) /lpf Urine Mucus (None) /hpf 04/01/18 04/01/18 04/01/18 Range/Units 01:16 02:20 03:09 WBC 11.5 H (3.8-10.6) k/uL RBC 3.11 L (3.80-5.40) m/uL Hgb 10.8 L (11.4-16.0) gm/dL MCV 112.0 H (80.0-100.0) fL Neutrophils # 9.5 H (1.3-7.7) k/uL APTT (22.0-30.0) sec Sodium (137-145) mmol/L Carbon Dioxide (22-30) mmol/L BUN (7-17) mg/dL Creatinine (0.52-1.04) mg/dL Glucose (74-99) mg/dL POC Glucose (mg/dL) 151 H (75-99) mg/dL Troponin I (0.000-0.034) ng/mL Urine Protein 2+ H (Negative) Urine Blood Small H (Negative) Hyaline Casts 4 H (0-2) /lpf Urine Mucus Rare H (None) /hpf 04/01/18 04/01/18 04/01/18 Range/Units 03:09 05:35 05:35 WBC (3.8-10.6) k/uL RBC (3.80-5.40) m/uL Hgb (11.4-16.0) gm/dL MCV (80.0-100.0) fL Neutrophils # (1.3-7.7) k/uL APTT 37.0 H (22.0-30.0) sec Sodium 136 L (137-145) mmol/L Carbon Dioxide 18 L (22-30) mmol/L BUN 54 H (7-17) mg/dL Creatinine 2.14 H (0.52-1.04) mg/dL Glucose 184 H (74-99) mg/dL POC Glucose (mg/dL) (75-99) mg/dL Troponin I 11.100 H* (0.000-0.034) ng/mL Urine Protein (Negative) Urine Blood (Negative) Hyaline Casts (0-2) /lpf Urine Mucus (None) /hpf 04/01/18 04/01/18 04/01/18 Range/Units 05:58 11:28 12:04 WBC (3.8-10.6) k/uL RBC (3.80-5.40) m/uL Hgb (11.4-16.0) gm/dL MCV (80.0-100.0) fL Neutrophils # (1.3-7.7) k/uL APTT 85.6 H (22.0-30.0) sec Sodium (137-145) mmol/L Carbon Dioxide (22-30) mmol/L BUN (7-17) mg/dL Creatinine (0.52-1.04) mg/dL Glucose (74-99) mg/dL POC Glucose (mg/dL) 180 H 147 H (75-99) mg/dL Troponin I (0.000-0.034) ng/mL Urine Protein (Negative) Urine Blood (Negative) Hyaline Casts (0-2) /lpf Urine Mucus (None) /hpf 04/01/18 Range/Units 16:12 WBC (3.8-10.6) k/uL RBC (3.80-5.40) m/uL Hgb (11.4-16.0) gm/dL MCV (80.0-100.0) fL Neutrophils # (1.3-7.7) k/uL APTT (22.0-30.0) sec Sodium (137-145) mmol/L Carbon Dioxide (22-30) mmol/L BUN (7-17) mg/dL Creatinine (0.52-1.04) mg/dL Glucose (74-99) mg/dL POC Glucose (mg/dL) 157 H (75-99) mg/dL Troponin I (0.000-0.034) ng/mL Urine Protein (Negative) Urine Blood (Negative) Hyaline Casts (0-2) /lpf Urine Mucus (None) /hpf Microbiology - Last 24 Hours (Table) 03/31/18 11:10 Gram Stain - Preliminary Sputum Sputum Culture - Preliminary Assessment and Plan Assessment: Assessment #1 acute non-ST deviation myocardial infarction #2 congestive heart failure exacerbation and known if it's due to systolic or diastole dysfunction #3 known CAD and status post CABG with unknown details #4 diabetes type 2 #5 hypertension #6 dyslipidemia Plan #1 the patient continues to be in heart failure #2 continue the current dose of diuretic #3 monitor her kidney function and electrolytes #4 continue aspirin, metoprolol, and Lipitor to the current medical regimen #5 obtain an echocardiogram with Doppler #6 proceed with coronary angiogram tomorrow #7 follow-up with the patient
--- NOTE | 2018-04-01 16:38 | US ---
EXAMINATION TYPE: US chest DATE OF EXAM: 04/01/2018 COMPARISON: Chest x-ray 04/01/2018 CLINICAL HISTORY: pleural effusion. TECHNIQUE: Targeted ultrasound of the posterior lower EXAM MEASUREMENTS: Right Pleural Effusion pocket size: 10.0 cm Right skin surface to fluid distance: 2.3 cm Left Pleural Effusion pocket size: 4.3 cm Left skin surface to fluid distance: 2.0 cm Right side marked for possible thoracentesis outside the dept. Left side marked for possible thoracentesis outside the dept. Pulmonologists are able to review the images in the patient?s EMR. IMPRESSIONS: Bilateral sizable pleural effusions.
[2018-04-01] MEDS ORDERED: LEVOFLOXACIN 750MG-D5W PMX 750 MG in DEXTROSE/WATER 1 150ML.BAG IVPB SCH (19:00)
[2018-04-01] MEDS ORDERED: FUROSEMIDE 250 MG in SODIUM CHLORIDE 0.9% 225 ML IVP SCH (20:30)
[2018-04-01] MEDS ORDERED: FUROSEMIDE 10 MG/ML 10 ML VIAL IV SCH (20:30)
--- NOTE | 2018-04-01 20:56 | PN ---
PROGRESS NOTE DATE OF SERVICE: 04/01/18 PRESENT COMPLAINT: Short of breath. INTERVAL HISTORY: This is a patient who presented with acute WA and earlier declined cardiac catheterization. Also found to be in congestive heart failure and also pneumonia. This morning, sitting on the window seat two sons and [id number] are present. Shortness of breath. No chest pain. Slight cough. Now tired. REVIEW OF SYSTEMS: Done for constitutional, cardiovascular, GI, pulmonary; relevant findings as above. CURRENT MEDICATIONS: Reviewed that include IV heparin, IV Levaquin, IV Lasix. PHYSICAL EXAMINATION: Temperature 97.1, pulse 72, respiratory 18, blood pressure 133/73, pulse ox 92 percent on 3 L. GENERAL APPEARANCE: Sitting up, short of breath. EYES: Pupils equal. Conjunctivae normal. HEENT: External appearance of nose and ears normal. NECK: JVD possibly raised. Mass not palpable. RESPIRATORY: Effort increased. Lungs decreased breath sounds with bilateral crackles. CARDIOVASCULAR: First and second sounds normal. No edema. ABDOMEN: Soft, nontender. Liver and spleen not palpable. PSYCHIATRY: Awake. Answering simple questions. INVESTIGATIONS: Potassium 5, BUN 54, creatinine 2.14. ASSESSMENT: 1. Acute non-Q-wave myocardial infarction. 2. Acute congestive heart failure exacerbation from systolic dysfunction, EF 40-45 percent, underlying coronary artery disease. 3. Right lower lobe pneumonia, cannot rule out underlying mass. 4. Pleural effusion secondary to congestive heart failure, more so large on the right side. 5. Right lower lobe pneumonia suspect gram-negative organism. 6. 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 7. Chronic gait dysfunction, uses a walker. 8. Macrocytic anemia cause unknown. 9. Possible chronic kidney disease, stage III, from nephrosclerosis. 10.Metabolic acidosis from renal failure. 11.Acute renal failure from diuresis, prerenal. PLAN: Care was discussed at length with the patient and the 2 sons, the pros and cons. There is a concern of course of patient's renal function with cardiac catheterization. They have agreed to proceed with cardiac catheterization as indicated by Cardiology. I did speak to Dr. Estrella, who will go back and talk to the patient. In the meantime will overnight use Lasix drip to see if the patient's renal function improves with better perfusion and hopefully get more diuresis. Otherwise it will be difficult for patient to lay down in a current state that she is. Overall prognosis guarded. Continue other medication and treatment plan. ADVANCED CARE PLANNING: This was discussed at length with the patient and 2 sons at the bedside. 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 The patient at this point was FULL CODE, but after discussing all the pros and cons and renal function, her cardiac status and age and getting older, the patient has decided to proceed with a DO NOT RESUSCITATE STATUS, which she well understands. This discussion additionally took about 35 minutes. KAYLAH / MHIIR: [id number] /
[2018-04-01 21:38] LABS: Glucose,Whole Blood 153 mg/dL (75-99)
[2018-04-01] MEDS: ATORVASTATIN 80 MG TAB PO SCH (21:50)
[2018-04-01 23:26] VITALS: BP 101/49; RESP 15
[2018-04-01] MEDS ORDERED: MELATONIN 1 MG TAB PO SCH (23:30)
[2018-04-02 00:20] VITALS: PULSE 68
[2018-04-02] MEDS ORDERED: FUROSEMIDE 10 MG/ML 4 ML VIAL IV SCH (09:00)
--- NOTE | 2018-04-03 09:25 | DS ---
DISCHARGE SUMMARY DATE OF ADMISSION: 03/31/2018 DATE PATIENT : 04/03/2018 CAUSE OF : Acute myocardial infarction. Other medical conditions: 1. Acute non-Q-wave myocardial infarction. 2. Acute congestive heart failure exacerbation from systolic dysfunction, ejection fraction 40%-45% from underlying coronary artery disease. 3. Right lobe pneumonia. 4. Pleural effusion, large, greater than the left from congestive heart failure. 5. 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 6. Chronic gait dysfunction, uses a walker. 7. Macrocytic anemia, cause unknown. 8. Possible chronic kidney disease stage III, from nephrosclerosis. 9. Metabolic acidosis from renal failure. 10.Acute renal failure from diuresis, prerenal. CONSULTATIONS: 1. Dr. Estrella from Cardiology. 2. Dr. Torres from Pulmonary. HOSPITAL COURSE: This patient presented with acute OK, CHF, pneumonia. Patient had declined cardiac catheterization. Initially was in congestive heart failure. Had a lengthy talk with the patient's family. She had become DNR because of guarded prognosis. Patient succumbed to the underlying condition. MMODL / IJN: [id number] /
--- NOTE | 2018-04-06 11:11 | CDI ---
Date: 04/06/2018 From: Jeanne RAMIREZ,RN,CCDS Admit Date: 03/31/2018 12:45:00 AM Patient Name: Keturah Vaz Visit Number: [id number] Discharge Date: 04/02/2018 ATTENTION: The Clinical Documentation Specialists (CDI) and [facility] Coding Staff appreciate your assistance in clarifying documentation. Please respond to the clarification below the line at the bottom and electronically sign. The CDI & [facility] Coding staff will review the response and follow-up if needed. Please note: Queries are made part of the Legal Health Record. If you have any questions, please contact the author of this message via ITS. Matheus Fulton MD ED has documented respiratory failure in pt presenting from another facility for SOB. Treated for NSTEMI, Acute exacerbation of systolic CHF, LEONIDES and Pneumonia ED notes resp failure with note pt was treated for resp distress and transferring facility with transient BIPAP and was transitioned to NC. History/Risk Factors: previous smoker, DM2, CKD,HTN, CHF,CABG and aortic valve replacement, anemia Clinical Indicators: HP notes tired appearing, increased respiratory effort, Consult notes mild dstress rales, wheezing and rhonchi, ,04/01 notes unable to lie flat, SOB Tachypnea , anxious. Sitting up. Vital signs: 102/49-147/ 74, HR 68-97 RR 15-21 Pulse ox 90-99% with 2-5LNC Pulse oximetry:ED 99% w 3lnc, Nurses notes 04/01 to 5l NC with RR to 21 and Pulse ox to low of 90% requiring 5L NC Lung/Breathing assessment: Rales, Rhonchi, wheezing, some distress, increased effort Continuous Pulse ox 90-98% O2 @ 2-5LNC In your professional opinion, can you please clarify patients respiratory status? Acuity: Acute Chronic Acute on Chronic Specificity: Respiratory Failure, further specify (if known): With hypercapnia? With hypoxia? Respiratory Distress Respiratory Insufficiency Other Diagnosis, please specify Unable to determine __ possibly acute hypoxic respiratory failure secondary to pneumonia and CHF MTDD
--- NOTE | 2018-04-06 11:29 | CDI ---
Last Revision, May 2017 Date: 04/06/2018 From: Jeanne RAMIREZ,RN,CCDS Admit Date: 03/31/2018 12:45:00 AM Patient Name: Keturah Vaz Visit Number: [id number] Discharge Date:04/02/2018 ATTENTION: The Clinical Documentation Specialists (CDI) and [facility] Coding Staff appreciate your assistance in clarifying documentation. Please respond to the clarification below the line at the bottom and electronically sign. The CDI & [facility] Coding staff will review the response and follow-up if needed. Please note: Queries are made part of the Legal Health Record. If you have any questions, please contact the author of this message via ITS. Matheus Fulton MD Acute Renal failure is documented in medical record in PNs and discharge summary. History Risk factors/Other underlying illness: Acute non Q wave NE, Acute pulmonary edema 2nd to NSTEMI, CHF acute on chronic systolic CHF,HTN, CKD 3,DM2 , s/p CTA to r/o PE Clinical Indicators: Acute renal failure noted likely prerenal due to diuresis and with recent CTA to R/O PE Other indicators : metabolic acidosis 2nd to renal failure Labs: UA with Hyaline Casts 4, 2 plus protein, yellow, clear Patient presents with a BUN 31 CR1.28 and GFR of 47 to BUN 51 Cr 2.14 and GFR 21 Patients baseline BUN/CR and GFR: Treatment: NaBicarb po, labs, Nephrology Consult, Cardiac notes will wait for Cardiac Cath, Avoid Nephrotoxic meds, Reduced Lasix dose In your professional opinion, can you please clarify if the Acute renal failure can be further specified? Acute Renal Failure with Acute Tubular Necrosis Acute Renal Failure with Renal Cortical Necrosis Acute Renal Failure with other specified pathological cause, please specify Acute Renal Failure with other cause, please specify Unable to determine Other, please specify ____ SEE DC SUMMARY- NO CHANGE IN DOCUMMENTATION MTDD
== END 2018-04-02 05:45 | disposition expired ==
LOC: EC 00:24 → 3SCARD 00:45
PROVIDERS: ADMIT Hospitalist; ATTEND Hospitalist
DX: I21.4 Non-ST elevation (NSTEMI) myocardial infarction (principal); I50.23 Acute on chronic systolic (congestive) heart failure; J18.1 Lobar pneumonia, unspecified organism; J96.01 Acute respiratory failure with hypoxia; N17.9 Acute kidney failure, unspecified; E87.2 Acidosis; R04.2 Hemoptysis; I13.0 Hypertensive heart and chronic kidney disease with heart failure and stage 1 through stage 4 chronic kidney disease, or unspecified chronic kidney disease; T82.857A Stenosis of other cardiac prosthetic devices, implants and grafts, initial encounter; Z66 Do not resuscitate; I11.0 Hypertensive heart disease with heart failure; E11.22 Type 2 diabetes mellitus with diabetic chronic kidney disease; N18.3 Chronic kidney disease, stage 3 (moderate); G30.1 Alzheimer's disease with late onset; F02.80 Dementia in other diseases classified elsewhere, unspecified severity, without behavioral disturbance, psychotic disturbance, mood disturbance, and anxiety; D53.9 Nutritional anemia, unspecified; I34.0 Nonrheumatic mitral (valve) insufficiency; E78.5 Hyperlipidemia, unspecified; T50.2X5A Adverse effect of carbonic-anhydrase inhibitors, benzothiadiazides and other diuretics, initial encounter; R26.9 Unspecified abnormalities of gait and mobility; E03.9 Hypothyroidism, unspecified; I25.10 Atherosclerotic heart disease of native coronary artery without angina pectoris; Z79.01 Long term (current) use of anticoagulants; Z79.890 Hormone replacement therapy; Z79.899 Other long term (current) drug therapy; Z95.1 Presence of aortocoronary bypass graft; Z95.2 Presence of prosthetic heart valve; Z87.891 Personal history of nicotine dependence; Z88.1 Allergy status to other antibiotic agents; Z88.0 Allergy status to penicillin; Z82.49 Family history of ischemic heart disease and other diseases of the circulatory system
CPT/HCPCS: 36415; 71046; 76604; 76770; 80048; 80053; 81001; 82550; 82553; 83036; 83735; 83880; 84484; 85025; 85610; 85730; 87070; 87205; 93005; 93306; 94640; 94760; 96365; 99285